=== PATIENT | male | born 1985 | race Caucasian/White ===

== ENCOUNTER 2017-09-10 20:47 | Emergency (ER) | payer BC ==
[~2017-09-10] VITALS: Ht 180.3 cm; Wt 77.3 kg
[2017-09-10 21:02] VITALS: TEMP 36.7; Ht 180.3 cm; Wt 77.3 kg
[2017-09-10] MEDS ORDERED: ALUMINUM/MAGNESIUM SUSP 30 ML UDC PO STA (21:09)
[2017-09-10] MEDS ORDERED: LIDOCAINE HCL 2% VISC SOLN 20 ML UDC PO STA (21:09)
[2017-09-10] MEDS ORDERED: FAMOTIDINE IV INJ 20 MG in SYRINGE 3 ML IV SCH (21:09)
[2017-09-10] MEDS ORDERED: FAMOTIDINE IV INJ 20 MG in DEXTROSE 5% 100ML 100 ML IV STA (21:09)
[2017-09-10] MEDS ORDERED: SODIUM CHLORIDE 0.9% 1000ML 500 ML IV STA (21:09)
[2017-09-10] MEDS ORDERED: OPTIRAY 320 IV PRN (21:30)
[2017-09-10] MEDS ORDERED: FAMOTIDINE 20MG/5ML IV PUSH IV ONE (21:39)
[2017-09-10] MEDS ORDERED: GABA600T PO (21:47)
[2017-09-10 22:10] LABS: BASO % 0.3 %; BASO ABS # 0.02 K/uL (0-0.2); EOS ABS # 0.19 K/uL (0-0.5); HEMATOCRIT 40.4 % (42-52); HEMOGLOBIN 13.9 g/dL (14.0-18.0); LYMPH % 45.1 %; LYMPH ABS # 2.87 K/uL (1.2-3.4); MEAN CORPUSCULAR HEMOGLOBIN 29.6 pg (25-34); MEAN CORPUSCULAR HGB CONC 34.4 g/dl (32-36); MEAN PLATELET VOLUME 9.8 fL (7.4-10.4); NEUT % 40.6 %; NEUT ABS # 2.58 K/uL (1.4-6.5); PLATELET COUNT 213 K/uL (130-400); RED CELL DISTRIBUTION WIDTH CV 15.1 % (11.5-14.5); RED CELL DISTRIBUTION WIDTH SD 48.3 fL (36.4-46.3); WHITE BLOOD COUNT 6.36 K/uL (4.8-10.8)
[2017-09-10 22:35] LABS: ALBUMIN 3.7 gm/dl (3.4-5.0); ALT/SGPT 231 U/L (12-78); AST/SGOT 96 U/L (15-37); BLOOD UREA NITROGEN 16 mg/dl (7-18); CALCIUM 8.6 mg/dl (8.5-10.1); CARBON DIOXIDE 27 mmol/L (21-32); CREATININE 1.13 mg/dl (0.60-1.40); GLUCOSE 116 mg/dl (70-99); LIPASE 102 U/L (73-393); POTASSIUM 3.8 mmol/L (3.5-5.1); SODIUM 140 mmol/L (136-145)
[2017-09-10 22:40] LABS: ALKALINE PHOSPHATASE 125 U/L (45-117); TOTAL PROTEIN 7.2 gm/dl (6.4-8.2)
--- NOTE | 2017-09-10 22:46 | DIAGNOSTIC IMAGING REPORT ---
CHEST ONE VIEW PORTABLE CLINICAL HISTORY: Pain, radiating to the abdomen. COMPARISON STUDY: No previous studies for comparison. FINDINGS: The cardiac and mediastinal contours are normal. There is no evidence of focal pulmonary consolidation. There is no evidence of failure. No pleural effusions are visualized.[ No free intraperitoneal air is visualized. IMPRESSION: No active disease in the chest. Electronically signed by: Willian Conley M.D. 09/10/2017 10:45 PM Dictated Date/Time: 09/10/2017 10:29 PM
--- NOTE | 2017-09-10 22:49 | DIAGNOSTIC IMAGING REPORT ---
BILIARY ULTRASOUND CLINICAL HISTORY: Epigastric pain. Elevated liver enzymes. COMPARISON STUDY: No previous studies for comparison. FINDINGS: Pancreas appears sonographically normal. No focal hepatic masses are visualized. There is no ductal dilatation. The gallbladder is contracted. No calculi are visualized. There is no ductal dilatation. There is no right-sided hydronephrosis. IMPRESSION: Contracted gallbladder. No calculi identified. No evidence of ductal dilatation. Electronically signed by: Willian Conley M.D. 09/10/2017 10:47 PM Dictated Date/Time: 09/10/2017 10:46 PM
--- NOTE | 2017-09-10 23:18 | EMERGENCY ROOM VISIT NOTE ---
History Report prepared by Pepito: Narendra Dugan Under the Supervision of: Dr. Sean Sorto M.D. First contact with patient: 21:06 Chief Complaint: ABDOMINAL PAIN Stated Complaint: STOMACH PAIN History of Present Illness The patient is a 32 year old male who presents to the Emergency Room with complaints of constant, needle-like abdominal pain beginning five days ago. He currently rates his discomfort a 6/10 in severity. The patient states his symptoms are in the upper middle and off to the upper quadrants of his abdomen. He reports it does not radiate into his back. The patient notes he is more fatigued than normal. He states eating does not change his discomfort. The patient reports he has a history of kidney stones, and this pain is different. He notes he is currently at [facility]. The patient states he has been there for 15 days, and he is there until September 28 for an opiate addiction. He reports he was sent to the ED because his LFTs were elevated. He states he does not take anything for reflux. The patient denies urinary symptoms, vomiting, trouble with his bowels, cough, congestion, fevers, a history of this discomfort, a history of gallbladder issues, a history of abdominal surgeries. Source of History: patient Onset: five days ago Position: abdomen Symptom Intensity: 6/10 Quality: other (needle-like) Timing: constant Associated Symptoms: + fatigue, No fevers, No cough, No vomiting, No back pain, No urinary symptoms Note: Associated symptoms: elevated LFTs Denies: congestion, trouble with is bowels Review of Systems See HPI for pertinent positives & negatives. A total of 10 systems reviewed and were otherwise negative. Past Medical & Surgical Medical Problems: (1) GERD (gastroesophageal reflux disease) (2) Opiate addiction Family History Patient reports no known family medical history. Social History Smoking Status: Current Some Day Smoker Marital Status: Housing Status: other ([facility] Occupation Status: employed Current/Historical Medications Scheduled Gabapentin (Neurontin), 600 MG PO TID Pantoprazole (Protonix), 20 MG PO DAILY Ranitidine (Zantac), 150 MG PO BID Allergies Coded Allergies: No Known Allergies (Unverified , 09/10/17) Physical Exam Vital Signs Date Time Temp Pulse Resp B/P (MAP) Pulse Ox O2 Delivery O2 Flow Rate FiO2 09/11/17 00:04 82 20 127/62 98 09/10/17 22:51 90 16 131/84 98 Room Air 09/10/17 22:21 92 20 140/85 99 Room Air 09/10/17 21:50 91 09/10/17 21:02 36.7 99 20 127/79 99 Room Air Physical Exam GENERAL: Patient is in no acute distress. HEENT: No acute trauma, normocephalic atraumatic, mucous membranes moist, no nasal congestion, no scleral icterus. NECK: No stridor, no adenopathy, no meningismus, trachea is midline. LUNGS: Clear to auscultation bilaterally, no wheeze, no rhonchi, breath sounds equal. HEART: Tachycardic rate and regular rhythm. No murmurs. ABDOMEN: Soft, moderately tender in the epigastrium and both upper quadrants, bowel sounds positive, no hernias, no peritonitis. EXTREMITIES: No cyanosis or edema, full range of motion of all the joints without pain or difficulty, no signs for acute trauma. NEUROLOGIC: Oriented x 3, no acute motor or sensory deficits, no focal weakness. SKIN: No rash, no jaundice, no diaphoresis. Medical Decision & Procedures ER Provider Diagnostic Interpretation: Radiology results as stated below per my review and radiologist interpretation: BILIARY ULTRASOUND CLINICAL HISTORY: Epigastric pain. Elevated liver enzymes. COMPARISON STUDY: No previous studies for comparison. FINDINGS: Pancreas appears sonographically normal. No focal hepatic masses are visualized. There is no ductal dilatation. The gallbladder is contracted. No calculi are visualized. There is no ductal dilatation. There is no right-sided hydronephrosis. IMPRESSION: Contracted gallbladder. No calculi identified. No evidence of ductal dilatation. Electronically signed by: Willian Conley M.D. 09/10/2017 10:47 PM Dictated Date/Time: 09/10/2017 10:46 PM CHEST ONE VIEW PORTABLE CLINICAL HISTORY: Pain, radiating to the abdomen. COMPARISON STUDY: No previous studies for comparison. FINDINGS: The cardiac and mediastinal contours are normal. There is no evidence of focal pulmonary consolidation. There is no evidence of failure. No pleural effusions are visualized.[ No free intraperitoneal air is visualized. IMPRESSION: No active disease in the chest. Electronically signed by: Willian Conley M.D. 09/10/2017 10:45 PM Dictated Date/Time: 09/10/2017 10:[address] ABDOMEN & PELVIS WITH CONTRAST: Multiple left renal stones measure up to 3mm. No hydronephrosis on either side. Prominent colonic stool. Query constipation. The small bowel demonstrates multiple mid to distal fluid distended loops through with normal caliber and without evidence for obstruction. The appendix is normal caliber. High density within the lumen could represent an appendicolith. No evidence for inflammation/ appendicitis currently. Gallbladder is contracted. No regional inflammatory changes are identified. Postoperative changes to the lower lumbar spine. Radiologist: Ruiz Humphries MD Study ready at 2313 and initial results transmitted at 1132. Laboratory Results 09/10/17 21:45 Red Blood Count 4.70, Mean Corpuscular Volume 86.0, Mean Corpuscular Hemoglobin 29.6, Mean Corpuscular Hemoglobin Concent 34.4, Mean Platelet Volume 9.8, Neutrophils (%) (Auto) 40.6, Lymphocytes (%) (Auto) 45.1, Monocytes (%) (Auto) 11.0, Eosinophils (%) (Auto) 3.0, Basophils (%) (Auto) 0.3, Neutrophils # (Auto ) 2.58, Lymphocytes # (Auto) 2.87, Monocytes # (Auto) 0.70, Eosinophils # (Auto ) 0.19, Basophils # (Auto) 0.02 09/10/17 21:45 Test 09/10/17 21:45 09/10/17 22:45 White Blood Count 6.36 K/uL (4.8-10.8) Red Blood Count 4.70 M/uL (4.7-6.1) Hemoglobin 13.9 g/dL (14.0-18.0) Hematocrit 40.4 % (42-52) Mean Corpuscular Volume 86.0 fL (80-100) Mean Corpuscular Hemoglobin 29.6 pg (25-34) Mean Corpuscular Hemoglobin Concent 34.4 g/dl (32-36) Platelet Count 213 K/uL (130-400) Mean Platelet Volume 9.8 fL (7.4-10.4) Neutrophils (%) (Auto) 40.6 % Lymphocytes (%) (Auto) 45.1 % Monocytes (%) (Auto) 11.0 % Eosinophils (%) (Auto) 3.0 % Basophils (%) (Auto) 0.3 % Neutrophils # (Auto) 2.58 K/uL (1.4-6.5) Lymphocytes # (Auto) 2.87 K/uL (1.2-3.4) Monocytes # (Auto) 0.70 K/uL (0.11-0.59) Eosinophils # (Auto) 0.19 K/uL (0-0.5) Basophils # (Auto) 0.02 K/uL (0-0.2) RDW Standard Deviation 48.3 fL (36.4-46.3) RDW Coefficient of Variation 15.1 % (11.5-14.5) Immature Granulocyte % (Auto) 0.0 % Immature Granulocyte # (Auto) 0.00 K/uL (0.00-0.02) Anion Gap 7.0 mmol/L (3-11) Est Creatinine Clear Calc Drug Dose 98.1 ml/min Estimated GFR () 97.7 Estimated GFR (Non- 84.3 BUN/Creatinine Ratio 14.5 (10-20) Calcium Level 8.6 mg/dl (8.5-10.1) Total Bilirubin 0.3 mg/dl (0.2-1) Aspartate Amino Transf (AST/SGOT) 96 U/L (15-37) Alanine Aminotransferase (ALT/SGPT) 231 U/L (12-78) Alkaline Phosphatase 125 U/L (45-117) Troponin I < 0.015 ng/ml (0-0.045) Total Protein 7.2 gm/dl (6.4-8.2) Albumin 3.7 gm/dl (3.4-5.0) Globulin 3.5 gm/dl (2.5-4.0) Albumin/Globulin Ratio 1.1 (0.9-2) Lipase 102 U/L (73-393) Urine Color YELLOW Urine Appearance CLEAR (CLEAR) Urine pH 6.5 (4.5-7.5) Urine Specific [place] 1.009 (1.000-1.030) Urine Protein NEG (NEG) Urine Glucose (UA) NEG (NEG) Urine Ketones NEG (NEG) Urine Occult Blood NEG (NEG) Urine Nitrite NEG (NEG) Urine Bilirubin NEG (NEG) Urine Urobilinogen NEG (NEG) Urine Leukocyte Esterase NEG (NEG) Laboratory results reviewed by me. Medications Administered Medications (Trade) Dose Ordered Sig/Broderick Route Start Time Stop Time Status Last Admin Dose Admin Sodium Chloride 500 ml @ 999 mls/hr Q31M STAT IV 09/10/17 21:09 09/10/17 21:39 DC 09/10/17 21:41 999 MLS/HR Lidocaine HCl (Viscous Lidocaine 2% Soln) 10 ml NOW STAT PO 09/10/17 21:09 09/10/17 21:17 DC 09/10/17 21:21 10 ML Al Hydroxide/Mg Hydroxide (Maalox Susp) 30 ml NOW STAT PO 09/10/17 21:09 09/10/17 21:17 DC 09/10/17 21:21 30 ML Famotidine 20 mg/ Syringe 5 ml @ 2.5 mls/min 2108 IV 09/10/17 21:09 09/10/17 22:00 DC 09/10/17 21:41 2.5 MLS/MIN Pantoprazole Sodium (Protonix Tab) 40 mg NOW STAT PO 09/10/17 23:45 09/10/17 23:46 DC 09/10/17 23:54 40 MG ECG Per My Interpretation Indication: abdominal pain Rate (beats per minute): 87 Rhythm: normal sinus Findings: no ectopy, other (No PVCs or ST elevation) ED Course 2106: The patient was evaluated in room C04. A complete history and physical exam was performed. 2108: Ordered Famotidine 20 mg/Syringe 5ml @ 2.5 mls/min Protocol IV, Maalox Susp 30ml PO, Lidocaine HCl 10ml PO, Sodium Chloride 500 ml @ 999 mls/hr IV 2344: Ordered Protonix 40mg PO 7: Reevaluated the patient. Discussed results and discharge instructions: he verbalized understanding and agreement. The patient is ready for discharge. Medical Decision The patient is a 32 year old male who presents to the ED with complaints of constant, needle-like abdominal pain beginning five days ago. Differential diagnoses considered include bowel perforation or obstruction, biliary colic or pancreatitis, gastritis or ulcer, diverticulitis, appendicitis. There is no leukocytosis or concerning anemia. No significant electrolyte abnormality or kidney failure. There is elevation to the liver enzymes as has apparently been noted before. No pancreatitis. Urinalysis does not show infection. Chest film does not show pneumonia or free air. There is no mediastinal widening. EKG shows a sinus rhythm, no acute ischemia. Cardiac enzyme testing 1 is not consistent with acute cardiac injury. Gallbladder ultrasound shows no gallstones or acute cholecystitis. Abdominal and pelvis CT shows some nonspecific findings to the small bowel, no bowel obstruction, no free air. No evidence for appendicitis or diverticulitis. The patient was given a GI cocktail, IV Pepcid and oral Protonix. He received IV saline. He seems comfortable. The cause for the symptoms is unclear but certainly gastritis or early ulcer is a possibility. He has been on NSAIDs for a long time and does not use anything for his stomach. His pain is epigastric. The patient is being discharged on Zantac and Protonix. If worsening, if not improving, he can return for reassessment. He is aware of his elevated liver enzymes, he is already being worked up for this finding. Medication Reconcilliation Current Medication List: was personally reviewed by me Blood Pressure Screening Patient's blood pressure: Elevated blood pressure Blood pressure disposition: Elevated BP felt to be situational Impression Primary Impression: Epigastric abdominal pain Additional Impression: Elevated LFTs Scribe Attestation The scribe's documentation has been prepared under my direction and personally reviewed by me in its entirety. I confirm that the note above accurately reflects all work, treatment, procedures, and medical decision making performed by me. Departure Information Dispostion Home / Self-Care Prescriptions Pantoprazole (Protonix) 20 Mg Tab 20 MG PO DAILY, #30 TAB 3 Refills Prov: Sean Sorto M.D. 09/10/17 Ranitidine (Zantac) 150 Mg Tab 150 MG PO BID for 14 Days, #28 TAB Prov: Sean Sorto M.D. 09/10/17 Referrals No Doctor, Assigned (PCP) Forms Call Back Authorization, HOME CARE DOCUMENTATION FORM, IMPORTANT VISIT INFORMATION Patient Instructions My [facility] Additional Instructions protonix daily for 1 month zantac 2x per day for 2 weeks return if worsening imaging today showed a normal gallbladder CT scan did not show any acute surgical process Problem Qualifiers
[2017-09-10] MEDS ORDERED: PANTOprazole SOD 40 MG TAB PO STA (23:45)
[2017-09-10] MEDS ORDERED: RANI150T85 PO (23:55)
[2017-09-10] MEDS ORDERED: PRT/20 PO (23:55)
[2017-09-11 00:04] VITALS: BP 127/62; PULSE 82; O2SAT 98
--- NOTE | 2017-09-11 07:02 | DIAGNOSTIC IMAGING REPORT ---
ABDOMEN AND PELVIS CT WITH IV CONTRAST CT DOSE: 319.81 mGy.cm HISTORY: Acute generalized abdominal pain ABD PAIN, POSS OBSTRUCTION OR PERF, IV CONTRAST ONLY TECHNIQUE: Multiaxial CT images of the abdomen and pelvis were performed following the use of intravenous contrast. A dose lowering technique was utilized adhering to the principles of ALARA. COMPARISON STUDY: None. FINDINGS: Lung bases are clear. No pneumatosis or pneumoperitoneum identified. Imaged inferior cardiac chambers are unremarkable. Contracted gallbladder. The liver, spleen, pancreas and adrenal glands are within normal limits. Nonobstructing bilateral nephrolithiasis, left greater than right with calculi measuring up to 4 mm on the left. Pulmonary single nonobstructing punctate calculus is seen on the right involving the interpolar kidney. No ureteral calculi or obstructive uropathy. Bladder is mildly distended. Multiple phleboliths of the pelvis. Aorta is normal in course and caliber without aneurysm. No bulky adenopathy. No evidence of small bowel obstruction. Multiple nondilated fluid-filled loops of small bowel are seen within the lower abdomen and pelvis. Moderate stool volume throughout the colon, notably within the ascending and transverse segments. High attenuating material within the appendiceal lumen suggests appendicolith without evidence of acute appendicitis. Soft tissues are unremarkable. Prior posterior decompression with interbody zainab and screw fusion at L4-S1 with discectomy changes at L5-S1. 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 IMPRESSION: 1. Appendicolith without evidence of acute appendicitis. 2. Suggested constipation without evidence of bowel obstruction or pneumoperitoneum. 3. Nonobstructing bilateral nephrolithiasis, left greater than right. Electronically signed by: Jared Phelan M.D. 09/11/2017 7:01 AM Dictated Date/Time: 09/11/2017 6:56 AM
== END 2017-09-11 00:05 | disposition home or self-care (01) ==
LOC: C.EDB 20:49 → C.EDC 09-11 00:05
DX: R10.13 Epigastric pain (principal); R79.89 Other specified abnormal findings of blood chemistry; Z87.442 Personal history of urinary calculi; K21.9 Gastro-esophageal reflux disease without esophagitis; F11.20 Opioid dependence, uncomplicated; F17.210 Nicotine dependence, cigarettes, uncomplicated; Z79.899 Other long term (current) drug therapy